=== PATIENT | female | born 1970 | race Caucasian/White ===

== ENCOUNTER 2017-10-09 20:46 | Emergency (ER) | payer BC, SELFPAY ==
[2017-10-09 20:47] VITALS: BP 179/116; PULSE 82; RESP 16; TEMP 36.7; O2SAT 100; BMI 20.9
--- NOTE | 2017-10-09 20:55 | EKG12_ITS ---
Test Reason : CP Blood Pressure : / mmHG Vent. Rate : 067 BPM Atrial Rate : 067 BPM P-R Int : 142 ms QRS Dur : 074 ms QT Int : 412 ms P-R-T Axes : 009 052 053 degrees QTc Int : 435 ms Normal sinus rhythm Septal infarct , age undetermined Abnormal ECG Confirmed by RADHA BOURNE, GABINO ([id number]), movie editor LEXY BARRAGAN ([id number]) on 10/10/2017 5:11:30 PM Referred By: THOMPSON/PRASHANTH Confirmed By:GABINO GARCIA MD
--- NOTE | 2017-10-09 20:58 | ED.RN ---
NO OLD EKG'S IN MUSE
--- NOTE | 2017-10-09 21:00 | RAD_ITS ---
STUDY: X-RAY CHEST REASON FOR EXAM: Female, 47 years old. Chest pain TECHNIQUE: Frontal view of the chest COMPARISON: None. FINDINGS: The lungs are clear. There are no pleural effusions. There is no pneumothorax. The heart is normal in size. The visualized osseous structures are within normal limits. RAD/Chest 1 View (Portable) IMPRESSION: No acute thoracic pathology. Electronically Signed: Maximilian New, at 21:15 EDT Tel , Service support ,
[2017-10-09 21:11] VITALS: O2SAT 99
[2017-10-09 21:18] LABS: Absolute Lymphocyte Count 2.04 X10^3/ul (0.83-4.51); Absolute Neutrophil Count 3.1 X10^3/uL (2.0-7.7); Basophil# 0.03 X10^3/uL; Basophil% 0.5 % (0-1); Eosinophil# 0.07 X10^3/uL; Eosinophils% 1.2 % (0-5); Hematocrit 35.7 % (37-47); Hemoglobin 12.1 g/dl (12.0-15.0); Lymphocyte # 2.04 X10^3/ul (4.0); Mean Corp Hgb Conc 33.9 g/gl (32-36); Mean Corpuscular Hgb 29.2 pg (27.0-32.0); Mean Platelet Vol. 9.7 fl (6.2-12.0); Monocyte# 0.57 X10^3/uL; Monocyte% 9.8 % (0-10); Neutrophil # 3.12 X10^3/uL (2.7-7.7); Neutrophil % 53.5 % (47-70); POSITIVE COUNT NO; POSITIVE DIFFERENTIAL NO; POSITIVE MORPHOLOGY NO; Platelet Count 327 K/mm3 (150-450); RBC Distribution Width CV 12.5 % (11.6-14.6); RBC Distribution Width SD 38.7 fl (35.1-43.9); Red Blood Count 4.15 M/mm3 (4.2-5.4); White Blood Count 5.8 K/mm3 (4.4-11.0)
[2017-10-09 21:37] LABS: D-Dimer Quantitative (DVT/PE) 0.46 FEU/ug/m (0.27-0.49)
--- NOTE | 2017-10-09 21:37 | CT_ITS ---
STUDY: CTA CHEST REASON FOR EXAM: Female, 47 years old. Chest pain with inspiration RADIATION DOSAGE (If Supplied By Facility): CTDIvol = ( 4.52 ) mGy, DLP = ( 177.93 ) mGycm TECHNIQUE: The examination was performed with the intravenous administration of 75ml ml of Isovue 370 contrast material. Post-processing of the angiographic images was performed, with multiplanar reformation and 3D reconstruction. Individualized dose optimization techniques were used for this CT. COMPARISON: None. FINDINGS: Normal enhancement of the main pulmonary artery and right and left pulmonary arteries. Normal enhancement of the bilateral peripheral pulmonary arteries. There is no demonstrated pulmonary embolism. Thoracic aorta demonstrates no aneurysmal dilatation or dissection. Normal heart and pericardium. Normal mediastinum. Normal hilar regions. Normal visualized trachea and bronchi. The lungs are well expanded. No confluent airspace infiltrate. No pleural effusion or pneumothorax. Normal chest wall structures. Normal osseous structures. There is a hypoattenuated lesion in the medial aspect of the right posterior hepatic segment near the caudate lobe. CT/CTA Chest W/WO Contrast IMPRESSION: 1. No evidence of acute cardiopulmonary disease. 2. Hypoattenuated lesion within the right posterior hepatic segment/caudate lobe, most likely representing cysts versus hemangioma. Electronically Signed: Jose G Elizondo MD at 0:40 EDT Tel , Service support ,
[2017-10-09 21:55] LABS: Anion Gap 9 (5-15); BUN 13 mg/dL (7-18); BUN/Creat Ratio 13.8 RATIO (10-20); Calcium,Total 8.6 mg/dL (8.5-10.1); Chloride 103 mmol/L (98-107); Creatinine, Serum 0.94 mg/dL (0.55-1.02); EST Glomerular Filtration Rate 68 mL/min (>60); Est Glom Filt Rate - Afr Amer 82 mL/min (>60); Glucose 81 mg/dL (74-106); Potassium 3.2 mmol/L (3.5-5.1); Sodium Level 140 mmol/L (136-145)
[2017-10-09 23:01] VITALS: BP 169/94; PULSE 72; RESP 16; O2SAT 100
[2017-10-10] VITALS: BP 170/103; PULSE 72; RESP 16; O2SAT 98
--- NOTE | 2017-10-10 00:53 | ED.VISSUMM ---
- ER Visit Summary Date of Service: 10/10/17 Chief Complaint: Chest pain History of Present Illness: The patient is a 47 F presenting with chest pain. She states this started a few hours prior to arrival. She states she only has pain when she takes a deep inspiration. She denies shortness of breath. Denies fever or cough. She states her mom has a history of PE. She has no other DVT/PE risk factors. She has history of hypertension with no other coronary disease risk factors. Physical Examination: Vitals are stable. Patient is afebrile. Alert no acute distress. HEENT exam is unremarkable. Neck is supple. Lungs are clear and equal bilaterally. Heart is regular rate and rhythm. Abdomen is soft nontender nondistended. Extremities are unremarkable. Skin is warm and dry. No focal neurologic deficit. Remainder of exam is unremarkable. Emergency Department Course and Treatment: EKG is sinus rate is 67. Chest x-ray shows no acute process. CBC chemistries unremarkable other than potassium 3.2. She is given potassium oral replacement. Troponin is negative. CTA chest was obtained which shows no evidence of acute cardiopulmonary disease. Hypoattenuated lesion within the right posterior hepatic segment/caudate lobe, most likely representing cysts versus hemangioma. She is advised of these findings. On multiple re-evaluations her pain is completely resolved. She is advised to follow-up with her primary care physician for blood pressure recheck. Advised return to ED for any worsening complaints. Disposition: Discharge home Impression: Atypical chest pain This note was generated with [employer] dictation software. It may contain incorrect words, spelling, and punctuation that were not noted in review of the chart prior to signing ED Disposition - Plan for ED Patient: Chief Complaint: Chest Pain Referrals: NOT,DEFINED [Primary Care Provider] -
--- NOTE | 2017-10-10 00:57 | ED.DCSUM_ITS ---
- ER Visit Summary Date of Service: 10/10/17 Chief Complaint: Chest pain History of Present Illness: The patient is a 47 F presenting with chest pain. She states this started a few hours prior to arrival. She states she only has pain when she takes a deep inspiration. She denies shortness of breath. Denies fever or cough. She states her mom has a history of PE. She has no other DVT/PE risk factors. She has history of hypertension with no other coronary disease risk factors. Physical Examination: Vitals are stable. Patient is afebrile. Alert no acute distress. HEENT exam is unremarkable. Neck is supple. Lungs are clear and equal bilaterally. Heart is regular rate and rhythm. Abdomen is soft nontender nondistended. Extremities are unremarkable. Skin is warm and dry. No focal neurologic deficit. Remainder of exam is unremarkable. Emergency Department Course and Treatment: EKG is sinus rate is 67. Chest x- ray shows no acute process. CBC chemistries unremarkable other than potassium 3.2. She is given potassium oral replacement. Troponin is negative. CTA chest was obtained which shows no evidence of acute cardiopulmonary disease. Hypoattenuated lesion within the right posterior hepatic segment/caudate lobe, most likely representing cysts versus hemangioma. She is advised of these findings. On multiple re-evaluations her pain is completely resolved. She is advised to follow-up with her primary care physician for blood pressure recheck. Advised return to ED for any worsening complaints. Disposition: Discharge home Impression: Atypical chest pain This note was generated with [employer] dictation software. It may contain incorrect words, spelling, and punctuation that were not noted in review of the chart prior to signing ED Disposition - Plan for ED Patient: Chief Complaint: Chest Pain Referrals: NOT,DEFINED [Primary Care Provider] -
--- NOTE | 2017-10-10 00:57 | ED.DEP ---
ED Disposition - Plan for ED Patient: Chief Complaint: Chest Pain Instructions: ED Chest Pain Atypical Unkn Cause Referrals: NOT,DEFINED [Primary Care Provider] -
[2017-10-10 01:24] VITALS: BP 153/96; PULSE 70; RESP 12; O2SAT 97
== END 2017-10-10 01:20 | disposition home or self-care (01) ==
PROVIDERS: Emergency Provider Emergency Medicine
DX: R07.89 Other chest pain (principal)
CPT/HCPCS: 71045; 71275; 80048; 84484; 85025; 85379; 93005; 99285; Q9967; A4216